=== PATIENT | female | born 1935 | race Caucasian/White ===

== ENCOUNTER 2025-09-03 15:32 | Emergency (ER) | payer MEDICARE, OTHER, SELFPAY ==
--- NOTE | ~2025-09-03 | XR_ITS ---
EXAMINATION: XR hip LT 2V w AP pelvis DATE: 09/03/2025 16:27 INDICATION: Fall TECHNIQUE: Left hip x-rays were obtained. COMPARISON: None. FINDINGS: No displaced fracture lucency. The slightly buckled appearance of the superior femoral neck with nondisplaced fracture not excluded. The remainder the bones appear intact. IMPRESSION: 1. No displaced fracture lucency; nondisplaced left femoral neck fracture not excluded. 2. Correlate with left hip/pelvic CT. Reviewed, dictated and finalized at location A. PATIAL APPLICATIONS DEVELOPER IMPRESSION: 1. No displaced fracture lucency; nondisplaced left femoral neck fracture not e xcluded. 2. Correlate with left hip/pelvic CT.
--- NOTE | ~2025-09-03 | XR_ITS ---
EXAMINATION: XR knee LT 3V DATE: 09/03/2025 16:27 INDICATION: Pain TECHNIQUE: 3 view left knee x-rays were obtained. COMPARISON: None. 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 No large suprapatellar effusion. Vascular calcifications in the soft tissues. IMPRESSION: 1. No displaced fracture lucency. Reviewed, dictated and finalized at location A. NAUTICAL TEST ENGINEER
[2025-09-03 15:39] VITALS: BP 165/64; PULSE 64; RESP 20; TEMP 36.3; O2SAT 100
[2025-09-03 15:43] VITALS: BP 142/87; PULSE 79; RESP 18; TEMP 36.8; O2SAT 98
--- NOTE | 2025-09-03 17:05 | ED_ITS ---
HPI - Extremity Injury (Lower) General Chief Complaint: Extremity Injury, Lower Stated Complaint: tripped and fell on left hip and knee Time Seen by Provider: 09/03/25 15:40 History of Present Illness HPI Narrative: Patient is an 89-year-old female who presents the ER with pain to left hip and knee. Was walking up onto a curb when she lost her balance falling directly on the knee and head. She did not strike her head or lose consciousness. Had to be helped up and then could bear weight. She is not on blood thinners. No additional injury. Related Data Allergies Allergy/AdvReac Type Severity Reaction Status Date / Time No Known Allergies Allergy Verified 09/03/25 15:33 Review of Systems Review of Systems: All systems reviewed & are unremarkable except as noted in HPI and below Constitutional: Constitutional: Reports no additional constitutional complaints Cardiovascular: Cardiovascular: Reports no additional cardiovascular complaints Respiratory: Respiratory: Reports no additional respiratory complaints Musculoskeletal: Musculoskeletal: Reports no additional musculoskeletal complaints Neurologic: Reports system reviewed and no additional complaints, except as documented PMFSH Past Medical History Medical History (Updated 09/03/25 @ 17:17 by Arturo Childs MD) Hypertension Atrial fibrillation Exam Narrative: GENERAL: Well-appearing, well-nourished, and in no acute distress. HEAD: Normocephalic, atraumatic. EYES: PERRL and EOMI. ENT: Mucous membranes moist. EXTREMITIES: Normal range of motion. No edema. Contusion left knee. SKIN: Warm, dry, no rash. NEURO: Alert and oriented x3. PSYCH: Normal mood and affect. Course Course Emergency Course: Up and ambulatory with no issue. No fractures on imaging. Appropriate for discharge. No head injury. Vital Signs Vital signs: Vital Signs Temperature 97.3 F L 09/03/25 15:39 Pulse Rate 64 09/03/25 15:39 Respiratory Rate 20 09/03/25 15:39 Blood Pressure 165/64 H 09/03/25 15:39 Pulse Oximetry 100 09/03/25 15:39 Temperature 98.2 F 09/03/25 15:43 Pulse Rate 79 09/03/25 15:43 Respiratory Rate 18 09/03/25 15:43 Blood Pressure 142/87 H 09/03/25 15:43 Pulse Oximetry 98 09/03/25 15:43 Oxygen Delivery Room Air 09/03/25 15:43 MDM Differential Diagnosis Differential Diagnosis: Hip fracture, knee fracture, contusion, lower extremity sprain, head injury Imaging Data Radiologist's impression: ITS Impressions Knee X-Ray 09/03/25 16:30 IMPRESSION: 1. No displaced fracture lucency. Hip/Pelvis X-Ray 09/03/25 16:31 IMPRESSION: 1. No displaced fracture lucency; nondisplaced left femoral neck fracture not excluded. 2. Correlate with left hip/pelvic CT. Discharge Plan Discharge Clinical Impression: Contusion of knee, Contusion of hip Patient Disposition: Home Condition: Stable Instructions: Contusion in Adults (ED) Additional Instructions: Return to the ER if you suffered a new fall or injury, you become unable to walk, you strike her head and lose consciousness, or you have additional concerns. Take Tylenol or ibuprofen as needed for pain. Patient Language: Cypriot Follow-up/Referrals: PHYSICIAN,CLEARANCE CENTER MANAGER [Primary Care Provider, Internal Medicine] Khalida Foster DO [Physician, Family Practice] - 1 Week
[2025-09-03 17:46] VITALS: BP 178/80; PULSE 59; RESP 16; O2SAT 95
== END 2025-09-03 17:47 | disposition home or self-care (01) ==
PROVIDERS: Emergency Provider Emergency Medicine
DX: S80.02XA Contusion of left knee, initial encounter (principal); S70.02XA Contusion of left hip, initial encounter; I10 Essential (primary) hypertension; W01.0XXA Fall on same level from slipping, tripping and stumbling without subsequent striking against object, initial encounter
CPT/HCPCS: 73502; 73562; 99284